=== PATIENT | female | born 1960 | race Caucasian/White ===

== ENCOUNTER 2019-01-02 12:26 | Day surgery (SDC) | payer OTHER ==
[~2019-01-02] VITALS: Ht 144.8 cm; Wt 54.3 kg
[2019-01-02 14:14] VITALS: Ht 144.8 cm; Wt 54.3 kg
[2019-01-02 15:06] VITALS: BP 133/58; PULSE 52; RESP 16
[2019-01-02] MEDS ORDERED: FENTAnyl 50 MCG/ML VIAL ONE (16:35)
[2019-01-02] MEDS ORDERED: MIDAZOLAM 1 MG/ML 2 ML INJ ONE ×2 (16:35)
[2019-01-02 16:55] VITALS: BP 114/63; RESP 15
== END 2019-01-02 18:23 | disposition home or self-care (01) ==
LOC: GIL 12:26
PROVIDERS: ATTEND Internal Medicine
DX: Z12.11 Encounter for screening for malignant neoplasm of colon (principal); K57.30 Diverticulosis of large intestine without perforation or abscess without bleeding
CPT/HCPCS: 45378; J2250; J3010